=== PATIENT | male | born 1965 | race African-American/Black ===

== ENCOUNTER 2020-10-30 13:49 | Outpatient (CLI) | payer OTHER ==
[2020-10-31 11:37] LABS: SARS-CoV-2 PCR by NAA Not Detected (NotDetected)
== END 2020-10-30 13:50 | disposition home or self-care (01) ==
LOC: CSHLAB 13:49
PROVIDERS: ATTEND Internal Medicine Gastroenterology
DX: Z20.822 Contact with and (suspected) exposure to COVID-19 (principal); Z12.11 Encounter for screening for malignant neoplasm of colon
CPT/HCPCS: U0003; U0005

== ENCOUNTER 2022-07-23 18:50 | Emergency (ER) | payer OTHER, SELFPAY | END 2022-07-23 19:17 | disposition left against medical advice (07) | LOC: CSHERS 18:50 | DX: Z53.21 Procedure and treatment not carried out due to patient leaving prior to being seen by health care provider (principal) ==